=== PATIENT | female | born 1980 | race Caucasian/White ===

== ENCOUNTER 2020-07-29 05:18 | Inpatient (IN) ==
[2020-07-29] MEDS ORDERED: LACTATED RINGERS 500 ML IV PRN (05:32)
[2020-07-29] MEDS ORDERED: ONDANSETRON 4 MG/2 ML VIAL IV PRN ×2 (05:32→09:36)
[2020-07-29] MEDS ORDERED: CITRIC ACID/SODIUM CITRATE 30 ML UDCUP PO ONE (05:39)
[2020-07-29] MEDS ORDERED: FAMOTIDINE 20 MG/2 ML VIAL IV ONE (06:00)
[2020-07-29 06:20] LABS: Basophils # 0.1 10*3/uL (0.0-0.2); Basophils % 0.6 % (0.0-0.8); Eosinophils # 0.1 10*3/uL (0.0-0.87); Eosinophils % 1.3 % (0.00-10.9); Hematocrit 35.1 VOL% (35.7-47.0); Hemoglobin 11.7 GM/DL (12.0-16.0); Immature Granulocytes % 1.2 %; Immature Granulocytes Absolute 0.12 #; Lymphocytes # 2.1 10*3/uL (1.4-4.0); Lymphocytes % 21.1 % (21.3-54.2); Mean Corpuscular HGB Conc 33.3 GM/DL (32-36); Mean Corpuscular Volume 93.6 FL (87-102); Mean Platelet Volume 10.2 FL (9.6-12.0); Monocytes % 4.8 % (1.7-12.7); Platelet Count 282 T/CUMM (130-400); Red Blood Count 3.75 MC/CUMM (3.8-5.5); Red Cell Distribution Width 12.3 % (9.3-17.3); White Blood Count 10.2 T/CUMM (4-12)
[2020-07-29 06:38] LABS: Albumin 2.6 G/DL (3.4-5.0); Bilirubin,Total 0.4 MG/DL (0.2-1.0); Calcium 8.6 MG/DL (8.5-10.1); Osmolality,Calculated 268.8 MOS/KG (273-304); Potassium 3.6 MMOL/L (3.5-5.1); Total Protein 6.8 G/DL (6.4-8.2)
[2020-07-29] MEDS: LACTATED RINGERS 1,000 ML IV SCH ×2 (07:03→16:48)
[2020-07-29] MEDS ORDERED: ceFAZolin 2,000 MG/50 ML DUPLEX IV ONE (07:05)
[2020-07-29] MEDS ORDERED: ONDANSETRON 4 MG/2 ML VIAL ONE (07:20)
[2020-07-29] MEDS ORDERED: BUPIVACAINE SPINAL 0.75% 2 ML AMP SPINAL ONE (07:20)
[2020-07-29] MEDS ORDERED: TRANEXAMIC ACID 1,000 MG/10 ML VIAL ONE (07:48)
[2020-07-29] MEDS ORDERED: OXYTOCIN/LR 20 UNIT/1,000 ML BAG IV ONE ×4 (07:48→09:36)
[2020-07-29] MEDS ORDERED: CARBOPROST TROMETHAMINE 250 MCG/ML AMP IM ONE (07:48)
[2020-07-29] MEDS ORDERED: METHYLERGONOVINE 0.2 MG/1 ML AMP ONE (07:48)
[2020-07-29] MEDS ORDERED: miSOPROStoL 200 MCG TABLET ONE (07:48)
[2020-07-29] MEDS ORDERED: PHENYLEPHRINE 1 MG/10 ML SYRINGE IV ONE (08:03)
[2020-07-29 08:44] LABS: Cord Arterial Blood HCO3 22.1 MMOL/L
[2020-07-29 08:45] LABS: Cord Venous Blood HCO3 22.2 MMOL/L; Cord Venous Blood PCO2 35.9 MMHG; Cord Venous Blood PO2 35.1 MMHG
[2020-07-29] MEDS ORDERED: METHYLERGONOVINE 0.2 MG/1 ML AMP IM ONE (08:58)
[2020-07-29 08:59] LABS: Bilirubin,Urine Negative (Negative); Blood, Urine Negative (Negative); Glucose,Urine (UA) Negative (Negative); Ketones,Urine Negative (Negative); Mucus,Urine Occasional /LPF (Occasional); Nitrite,Urine Negative (Negative); Protein,Urine Negative; RBC,Urine 1 /HPF (0-4); Squamous Epithelial Cell,Urine Occasional /HPF (0-10); Urine Appearance CLEAR (Clear); Urine Color Straw (Yellow); Urine Specific Gravity 1.009 (1.001-1.035); Urine Urobilinogen < 2.0 EU/DL (0.2-1.0)
[2020-07-29] MEDS ORDERED: KETOROLAC 30 MG/1 ML VIAL IV ONE (09:00)
[2020-07-29] MEDS ORDERED: KETOROLAC 30 MG/1 ML VIAL ONE (09:08)
[2020-07-29] MEDS ORDERED: ACETAMINOPHEN 325 MG TABLET PO PRN (09:36)
[2020-07-29] MEDS ORDERED: SIMETHICONE CHEW 80 MG TABLET PO PRN (09:36)
[2020-07-29] MEDS ORDERED: RHO(D) IMMUNE GLOBULIN 300 MCG SYRINGE IM ONE (09:36)
[2020-07-29] MEDS ORDERED: LACTATED RINGERS 1,000 ML IV SCH (10:00)
[2020-07-29] MEDS: ACETAMINOPHEN 500 MG TABLET PO SCH ×4 (11:16→23:48)
[2020-07-29] MEDS ORDERED: ACETAMINOPHEN 500 MG TABLET PO SCH (12:00)
[2020-07-29] MEDS: KETOROLAC 30 MG/1 ML VIAL IV SCH ×2 (15:08→21:05)
[2020-07-29] MEDS: DOCUSATE SODIUM 100 MG CAPSULE PO SCH (20:41)
[2020-07-29] MEDS: oxyCODONE/ACETAMINOPHEN 5-325 MG TABLET PO PRN (21:54)
[2020-07-30] MEDS ORDERED: oxyCODONE/ACETAMINOPHEN 5-325 MG TABLET PO PRN (01:22)
[2020-07-30] MEDS: KETOROLAC 30 MG/1 ML VIAL IV SCH (03:05)
[2020-07-30] MEDS: ACETAMINOPHEN 500 MG TABLET PO SCH (05:04)
[2020-07-30 05:35] LABS: Basophils % 0.1 % (0.0-0.8); Eosinophils # 0.1 10*3/uL (0.0-0.87); Eosinophils % 0.8 % (0.00-10.9); Hematocrit 28.4 VOL% (35.7-47.0); Hemoglobin 9.7 GM/DL (12.0-16.0); Immature Granulocytes % 0.9 %; Immature Granulocytes Absolute 0.13 #; Lymphocytes # 1.1 10*3/uL (1.4-4.0); Lymphocytes % 7.7 % (21.3-54.2); Mean Corpuscular HGB Conc 34.2 GM/DL (32-36); Mean Corpuscular Volume 91.9 FL (87-102); Monocytes % 5.8 % (1.7-12.7); Neutrophils % 84.7 % (38.7-73.9); Platelet Count 218 T/CUMM (130-400); Red Blood Count 3.09 MC/CUMM (3.8-5.5); Red Cell Distribution Width 12.4 % (9.3-17.3); White Blood Count 14.2 T/CUMM (4-12)
[2020-07-30] MEDS: MAGNESIUM HYDROXIDE SUSP 30 ML UDCUP PO PRN ×2 (09:05→21:05)
[2020-07-30] MEDS: DOCUSATE SODIUM 100 MG CAPSULE PO SCH ×2 (09:05→21:05)
[2020-07-30] MEDS: MULTIVITAMIN (PRENATAL) TABLET PO SCH (09:05)
[2020-07-30] MEDS: FERROUS SULFATE 325 MG TABLET PO SCH (09:06)
[2020-07-30] MEDS: IBUPROFEN 800 MG TABLET PO PRN ×2 (09:07→21:05)
[2020-07-30] MEDS: oxyCODONE/ACETAMINOPHEN 5-325 MG TABLET PO PRN (13:58)
[2020-07-30] MEDS ORDERED: MEPERIDINE 50 MG/1 ML VIAL IM ONE (18:25)
[2020-07-30] MEDS ORDERED: diphenhydrAMINE CAP 25 MG CAPSULE PO PRN (21:39)
[2020-07-31] MEDS: MAGNESIUM HYDROXIDE SUSP 30 ML UDCUP PO PRN (08:53)
[2020-07-31] MEDS: MULTIVITAMIN (PRENATAL) TABLET PO SCH (08:53)
[2020-07-31] MEDS: DOCUSATE SODIUM 100 MG CAPSULE PO SCH (08:53)
[2020-07-31] MEDS: FERROUS SULFATE 325 MG TABLET PO SCH (08:53)
[2020-07-31] MEDS ORDERED: BUTALBITAL/ACETAMIN/CAFFEINE 50-325-40 MG TABLET PO PRN (09:05)
[2020-07-31] MEDS ORDERED: BUTALBITAL/ACETAMIN/CAFFEINE 50-325-40 MG TABLET PO ONE (09:06)
[2020-07-31] MEDS ORDERED: SUMAtriptan 6 MG/0.5 ML VIAL SUBCUT ONE (09:07)
[2020-07-31 12:25] VITALS: BP 120/60
== END 2020-07-31 15:05 | disposition home or self-care (01) | DRG 788 ==
LOC: N.LD 05:18 → N.OB 13:22
PROVIDERS: ADMIT Obstetrics & Gynecology; ATTEND Obstetrics & Gynecology
PROC: LDCSECT (ICD-10-PCS; 2020-07-29 07:30)